=== PATIENT | female | born 1950 | race Caucasian/White ===

== ENCOUNTER 2023-05-13 12:52 | Observation (INO) | payer MEDICARE ==
[2023-05-13 14:16] LABS: BASOPHILS PERCENT AUTO 0.4 % (0.2-1.5); EOSINOPHILS PERCENT AUTO 0.1 % (0.6-8.1); HEMATOCRIT 41.5 % (34.2-48.2); LYMPHOCYTES ABSOLUTE AUTO 0.9 x10-3/uL (1.0-4.4); LYMPHOCYTES PERCENT AUTO 11.2 % (18.4-52.1); MEAN CORPUSCULAR HEMOGLOBIN 30.6 pg (23.9-33.9); MEAN CORPUSCULAR HGB CONC 33.8 g/dL (31.9-34.8); MEAN CORPUSCULAR VOLUME 90.3 fL (76.7-100.5); MEAN PLATELET VOLUME 8.7 fL (7.1-12.4); MONOCYTES ABSOLUTE AUTO 0.6 x10-3/uL (0.3-1.0); MONOCYTES PERCENT AUTO 7.6 % (4.4-15.7); NEUTROPHILS ABSOLUTE AUTO 6.2 x10-3/uL (1.5-6.3); NEUTROPHILS PERCENT AUTO 80.7 % (30.8-76.2); PLATELET COUNT,PLT 232 x10(3)uL (151-488); RED BLOOD CELL COUNT 4.59 x10(6)uL (3.60-5.20); RED CELL DISTRIBUTION WIDTH 12.6 % (12.3-16.5); WHITE BLOOD CELL COUNT,WBC 7.7 x10-3/uL (3.0-10.3)
[2023-05-13 14:29] LABS: ALANINE AMINOTRANSFERASE,ALT 13 U/L (12-36); ALKALINE PHOSPHATASE 61 IU/L (56-112); ASPARTATE AMNIOTRANSFERASE,AST 27 IU/L (5-25); BLOOD UREA NITROGEN,BUN 14 mg/dL (7-18); BUN/CREATININE RATIO 11.7 (9-20); CARBON DIOXIDE,CO2 37 mmol/L (21-32); CHLORIDE,CL 94 mmol/L (100-110); CREATININE 1.2 mg/dL (0.55-1.02); EST CRCL DRUG DOSING (CG) 36.05 mL/min; ESTIMATED GFR 48 mL/min (>60); GLUCOSE RANDOM 101 mg/dL (80-116); POTASSIUM,K 2.9 mmol/L (3.5-5.3); PROTEIN TOTAL,TP 7.9 g/dL (6.0-8.0); SODIUM,NA 137 mmol/L (135-145)
[2023-05-13 14:31] LABS: TROPONIN I 11.6 pg/mL (4.0-60.3)
[2023-05-13 14:32] LABS: C-REACTIVE PROTEIN < 0.2 mg/dL (0.5-0.9)
[2023-05-13 15:18] LABS: BILIRUBIN,URINE SMALL (NEGATIVE); GLUCOSE,URINE NORMAL (NORMAL); KETONES,URINE NEGATIVE (NEGATIVE); LEUKOCYTE ESTERASE,URINE NEGATIVE (NEGATIVE); NITRITE,URINE NEGATIVE (NEGATIVE); OCCULT BLOOD,URINE LARGE (NEGATIVE); PROTEIN,URINE 30 mg/dL (NEGATIVE); UROBILINOGEN,URINE 1 mg/dL (NEGATIVE)
[2023-05-13 15:21] LABS: APPEARANCE,URINE SLIGHTLY CLOUDY (CLEAR); BACTERIA,URINE FEW (NS); COARSE GRANULAR CASTS,URINE FEW (NS); COLOR,URINE YELLOW (YELLOW); SQUAMOUS EPITHELIAL CELLS,UR FEW (NS,R,O); WBC,URINE 0-5 (0-5)
[2023-05-13] MEDS ORDERED: Magnesium Sulfate/Water 4 GM in Premix Bag 1 BAG IV ONE (15:36)
[2023-05-13] MEDS ORDERED: NS + KCl 20mEq/L 1,000 ML IV SCH ×2 (15:45→19:00)
[2023-05-13 20:24] LABS: BLOOD UREA NITROGEN,BUN 14 mg/dL (7-18); CALCIUM 8.3 mg/dL (8.6-10.2); CARBON DIOXIDE,CO2 33 mmol/L (21-32); CHLORIDE,CL 97 mmol/L (100-110); EST CRCL DRUG DOSING (CG) 43.27 mL/min; ESTIMATED GFR 59 mL/min (>60); GLUCOSE RANDOM 86 mg/dL (80-116); POTASSIUM,K 3.1 mmol/L (3.5-5.3); SODIUM,NA 136 mmol/L (135-145)
[2023-05-13] MEDS ORDERED: Potassium Chloride 20 MEQ Tab.ER PO ONE (21:07)
[2023-05-13 21:23] LABS: INR 1.08 (1.00-1.24); PROTHROMBIN TIME 11.1 sec (9.0-11.1)
[2023-05-13] MEDS ORDERED: Heparin Sodium 5,000 Units/ML Vial IVPUSH ONE (21:30)
[2023-05-13] MEDS: Heparin Sodium/0.45% NaCl 25,000 UNITS/500 ML BAG IV SCH (21:36)
[2023-05-13] MEDS: Dextrose 5%-0.225% NaCl w/KCl 1,000 ML IV SCH (21:56)
[2023-05-13] MEDS ORDERED: Zolpidem 5 MG Tab PO PRN (22:26)
[2023-05-13] MEDS ORDERED: Magnesium Hydroxide 400 MG/5 ML Susp 30 ML Cup PO PRN (22:26)
[2023-05-13] MEDS ORDERED: Acetaminophen 325 MG Tab PO PRN (22:26)
[2023-05-13] MEDS: Pantoprazole 40 MG Vial IVPUSH SCH (23:50)
[2023-05-14] MEDS: Sodium Chloride 0.9% 10 ML Syringe FLUSH PRN ×2 (00:28→00:29)
[2023-05-14 06:58] LABS: BLOOD UREA NITROGEN,BUN 10 mg/dL (7-18); BUN/CREATININE RATIO 12.5 (9-20); CALCIUM 8.1 mg/dL (8.6-10.2); CARBON DIOXIDE,CO2 33 mmol/L (21-32); CHLORIDE,CL 98 mmol/L (100-110); CREATININE 0.8 mg/dL (0.55-1.02); EST CRCL DRUG DOSING (CG) 54.08 mL/min; ESTIMATED GFR 78 mL/min (>60); GLUCOSE RANDOM 132 mg/dL (80-116); SODIUM,NA 136 mmol/L (135-145)
[2023-05-14] MEDS: Dextrose 5%-0.225% NaCl w/KCl 1,000 ML IV SCH (09:00)
[2023-05-14] MEDS ORDERED: Lisinopril 10 MG Tab PO SCH (09:00)
[2023-05-14] MEDS ORDERED: Hydrochlorothiazide 25 MG Tab *PTOM PO SCH (09:00)
[2023-05-14] MEDS ORDERED: Lisinopril 40 MG Tab *PTOM PO SCH (11:15)
[2023-05-14] MEDS ORDERED: Potassium Chloride 20 MEQ Tab.ER PO ONE (11:15)
[2023-05-14] MEDS: Pantoprazole 40 MG Vial IVPUSH SCH (11:18)
[2023-05-14] MEDS ORDERED: Ondansetron 4 MG/2 ML SDV IVPUSH PRN (12:06)
[2023-05-14 14:38] VITALS: BP 165/91; PULSE 82
[2023-05-14] MEDS: Heparin Sodium/0.45% NaCl 25,000 UNITS/500 ML BAG IV SCH (15:20)
[2023-05-14] MEDS ORDERED: Heparin Sodium 5,000 Units/ML Vial IV ONE (15:30)
[2023-05-14] MEDS ORDERED: ATENOLOL 25 MG PO SCH (17:00)
== END 2023-05-14 15:54 ==
LOC: FB.ED 12:52 → FB.MS 21:06 → UNDOADMIN 21:06 → FB.MS 21:06
PROVIDERS: ADMIT Family Medicine; ATTEND Family Medicine
DX: I48.19 Other persistent atrial fibrillation (principal); E86.0 Dehydration; Z51.5 Encounter for palliative care; K22.2 Esophageal obstruction; E87.6 Hypokalemia; I10 Essential (primary) hypertension; E78.00 Pure hypercholesterolemia, unspecified; K21.9 Gastro-esophageal reflux disease without esophagitis; Z79.899 Other long term (current) drug therapy
CPT/HCPCS: 36415; 71046; 80048; 80053; 81001; 83735; 84484; 85025; 85379; 85610; 85730; 86140; 93005; A9270; C9113; J1644; J2405; J3475; J3480; J3490; 93010; 99222; 99239